=== PATIENT | female | born 1995 | race Two or more races ===

== ENCOUNTER 2017-02-17 13:56 | Inpatient (IN) | payer OTHER ==
[~2017-02-17] VITALS: Ht 157.5 cm; Wt 52.2 kg
--- NOTE | 2017-02-17 13:56 | NUR ---
SHARP SUDDEN RLQ ABDOMINAL PAIN, NAUSEA. NAD NOTED. PT AAO X4, AMB WITH STEADY GAIT. 10/10 PAIN. RR EVEN AND UNLABORED. MD AT BEDSIDE FOR EVAL.
[2017-02-17] MEDS ORDERED: HYDROMORPHONE 1 MG/1 ML DISP.SYRIN ONE ×5 (14:08→17:21)
[2017-02-17] MEDS ORDERED: ONDANSETRON HCL/PF 4 MG/2 ML VIAL ONE (14:08)
[2017-02-17 14:18] LABS: BASOPHILS # (AUTO) 0.1 /CMM (0.0-0.2); BASOPHILS % (AUTO) 0.5 % (0.0-2.0); EOSINOPHILS # (AUTO) 0.1 /CMM (0.0-0.7); EOSINOPHILS % (AUTO) 0.4 % (0.0-6.0); HEMATOCRIT 42 % (33-45); HEMOGLOBIN 13.9 g/dL (11.5-14.8); LYMPHOCYTES # (AUTO) 2.4 /CMM (0.8-4.8); LYMPHOCYTES % (AUTO) 16.9 % (20.0-44.0); MEAN CORPUSCULAR HEMOGLOBIN 30 PG (26.0-33.0); MEAN CORPUSCULAR HGB CONC 34 g/dl (31.0-36.0); MEAN CORPUSCULAR VOLUME 90 fL (82-100); MONOCYTES # (AUTO) 0.5 /CMM (0.1-1.30); MONOCYTES % (AUTO) 3.2 % (2.0-12.0); PLATELET COUNT (AUTO) 222 /CMM (150-450); RED BLOOD CELL COUNT(AUTO) 4.61 MIL/uL (4.0-5.2); WHITE BLOOD COUNT (AUTO) 14.1 K/uL (4.3-11.0)
[2017-02-17] MEDS ORDERED: IV NS 0.9% 1,000 ML BAG IV ONE (14:30)
[2017-02-17] MEDS ORDERED: ONDANSETRON HCL/PF 4 MG/2 ML VIAL IVP ONE (14:30)
[2017-02-17] MEDS ORDERED: HYDROMORPHONE INJ 2 MG/ML DISP.SYRIN IV ONE ×3 (14:30→15:00)
[2017-02-17] MEDS ORDERED: IV SET PRIMARY 1 EA INFUS.SET MC ONE (14:31)
[2017-02-17] MEDS ORDERED: IV NS 0.9% 1,000 ML ONE (14:31)
[2017-02-17 14:33] LABS: INR 1.06 (0.87-1.13)
[2017-02-17 14:34] LABS: ALBUMIN 4.5 g/dL (3.4-5.0); BILIRUBIN,DIRECT 0.1 mg/dL (0.0-0.2); BILIRUBIN,TOTAL 0.4 mg/dL (0.2-1.0); TOTAL PROTEIN, SERUM 8.2 g/dL (6.4-8.2)
[2017-02-17] MEDS ORDERED: KETOROLAC TROMETHAMINE INJ 30 MG/ML VIAL ONE (14:42)
[2017-02-17] MEDS ORDERED: KETOROLAC TROMETHAMINE INJ 30 MG/ML VIAL IV ONE (15:00)
[2017-02-17] MEDS ORDERED: IV NS 0.9% 250 ML IV ONE (15:14)
[2017-02-17] MEDS ORDERED: CT SWABBABLE VALVE TRANS SET 1 EA INFUS.SET MC ONE (15:15)
[2017-02-17] MEDS ORDERED: IOHEXOL-300 100 ML VIAL IV ONE (15:15)
--- NOTE | 2017-02-17 15:35 | NUR ---
PAGED ELECTRIC LOCOMOTIVE FIRER/FIREMAN PANEL NANCY LINDQUIST NP
--- NOTE | 2017-02-17 15:44 | NUR ---
DR FRENCH ON THE PHONE WITH DR RAMIREZ
[2017-02-17] MEDS ORDERED: HYDROMORPHONE 1 MG/1 ML DISP.SYRIN IV ONE ×2 (16:00→16:30)
--- NOTE | 2017-02-17 16:08 | NUR ---
PATIENT ASSIGNED [id number] DX ABDOMINAL PAIN
[2017-02-17] MEDS ORDERED: ONDANSETRON HCL/PF 4 MG/2 ML VIAL IVP PRN (16:30)
[2017-02-17] MEDS ORDERED: Z GUARD REMEDY 2 OZ OINT TP PRN (16:30)
[2017-02-17] MEDS ORDERED: ACETAMINOPHEN 325 MG TABLET PO PRN (16:30)
[2017-02-17] MEDS ORDERED: MAG HYDROX/AL HYDROX/SIMETH 30 ML UDC PO PRN (16:30)
[2017-02-17] MEDS ORDERED: MAGNESIUM HYDROXIDE 30 ML UDC PO PRN (16:30)
[2017-02-17] MEDS ORDERED: HYDROMORPHONE INJ 2 MG/ML DISP.SYRIN IV PRN (16:30)
[2017-02-17] MEDS ORDERED: LORAZEPAM INJ 2 MG/ML VIAL IVP ONE (17:00)
[2017-02-17] MEDS ORDERED: LORAZEPAM INJ 2 MG/ML VIAL ONE (17:22)
[2017-02-17] MEDS ORDERED: MEPERIDINE HCL/PF 100 MG/ML DISP.SYRIN IV PRN (17:30)
[2017-02-17] MEDS: MEPERIDINE HCL/PF 50 MG/ML DISP.SYRIN IM PRN (17:53)
[2017-02-17 17:55] VITALS: BP 115/61
--- NOTE | 2017-02-17 17:55 | NUR ---
CORRECTIONAL SUPERVISING COOK NOTES RECEIVED PATIENT IN STABLE CONDITION, COMPLAINTS OF 9/10 ABD PAIN. ADMINISTERED DEMEROL ORDERED. ROOMATE AT BEDSIDE. ALERT AND ORIENTED X4. CAN AMBULATE WITHOUT ASSISTANCE. LAST BM WAS 02/16/17 AND LAST URINATION WAS 1230 TODAY. HISTORY OF OVARIAN CYSTS. 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 ALL NEEDS MET. PICTURES TAKEN. WILL CONTINUE TO MONITOR.
--- NOTE | 2017-02-17 19:25 | NUR ---
MS RN OPENING NOTES: RECEIVED PT IN BED DOZING INTERMITTENTLY WITH FRIENDS AT BEDSIDE. PT IS A/OX4. IV IS ON L AC #18G AND IS PATENT AND INTACT. FLUIDS RUNNING AT NS 0.9% 75ML/HR. PT IS AMBULATORY WITH ASSIST. PT KEPT CLEAN, DRY, AND COMFORTABLE. CALL LIGHT WITHIN PT'S REACH. BED KEPT IN LOCKED, LOWEST POSITION, AND SIDE RAILS X2 UP. WILL CONTINUE TO MONITOR PT FOR PAIN AND THROUGHOUT SHIFT.
--- NOTE | 2017-02-17 19:42 | NUR ---
RN PM NOTES PATIENT ASLEEP IN BED AFTER PAIN MEDICATION, TOLERATED WELL. PATIENT IN STABLE CONDITION, EASILY AROUSABLE, PAIN 8/10. PICTURES TAKEN, ADMISSION COMPLETE. ENDORSED TO NEXT NURSE FOR CUBE MACHINE TENDER.
[2017-02-17 20:00] VITALS: BP 108/52
[2017-02-17] MEDS ORDERED: SECONDARY IV SET 1 EA INFUS.SET MC ONE (20:33)
[2017-02-17 21:02] VITALS: BP 108/52
[2017-02-17] MEDS: PIPERACILLIN /TAZOBACTAM 3.375 G in IV D5W 50 ML IV SCH (21:07)
[2017-02-18] MEDS: PIPERACILLIN /TAZOBACTAM 3.375 G in IV D5W 50 ML IV SCH ×4 (00:25→18:18)
[2017-02-18] MEDS: HYDROCODONE/APAP 10/325MG 1 EA TABLET PO PRN ×2 (03:19→13:34)
--- NOTE | 2017-02-18 03:19 | NUR ---
MS RN NOTES: PT COMPLAINED OF 8/10 R LOWER PAIN IN HER ABDOMEN RADIATING TO BACK. BP WAS 133/69 HR 72, 97.7 TEMP, AND PULSE OX 97%. HYDROCODONE 10/325MG PO WAS GIVEN. WILL CONTINUE TO MONITOR PT.
--- NOTE | 2017-02-18 06:59 | NUR ---
MS RN CLOSING NOTES: ALL NEEDS WERE ATTENDED. PT IN BED ASLEEP WITH FRIEND AT BEDSIDE. CALL LIGHT WITHIN PT'S REACH. BED KEPT IN LOCKED, LOWEST POSITION, AND SIDE RAILS X 2 UP. PT KEPT CLEAN, DRY, AND COMFORTABLE. IV IS ON L AC #18 AND IS PATENT AND INTACT. FLUIDS INFUSING NS 0.9% 1,000ML AT 75 MLS/HR. PT IS NPO EXCEPT MEDS. WILL CONTINUE TO MONITOR FOR PAIN THROUGHOUT SHIFT. WILL ENDORSE TO AM NURSE FOR CONTINUITY OF CARE.
[2017-02-18 07:39] LABS: BASOPHILS % (AUTO) 0.2 % (0.0-2.0); EOSINOPHILS % (AUTO) 0.2 % (0.0-6.0); HEMATOCRIT 35 % (33-45); HEMOGLOBIN 11.8 g/dL (11.5-14.8); LYMPHOCYTES # (AUTO) 1.4 /CMM (0.8-4.8); MEAN CORPUSCULAR HEMOGLOBIN 30 PG (26.0-33.0); MEAN CORPUSCULAR HGB CONC 34 g/dl (31.0-36.0); MEAN CORPUSCULAR VOLUME 89 fL (82-100); MONOCYTES # (AUTO) 0.6 /CMM (0.1-1.30); MONOCYTES % (AUTO) 6.8 % (2.0-12.0); NEUTROPHILS % (AUTO) 77.8 % (43.0-81.0); PLATELET COUNT (AUTO) 188 /CMM (150-450); RDW COEFFICIENT OF VARIATION 13.2 (11.5-15.0); RED BLOOD CELL COUNT(AUTO) 3.87 MIL/uL (4.0-5.2); WHITE BLOOD COUNT (AUTO) 9.1 K/uL (4.3-11.0)
[2017-02-18 08:00] VITALS: BP 95/50
--- NOTE | 2017-02-18 08:00 | NUR ---
m/s communications executive: notes in bed awake, resting comfortable. no c/o pain or any discomfort. remains npo. no bleeding reported. friends remains at bedside. instructed to call for assistance. will continue to monitor.
[2017-02-18 08:02] LABS: CALCIUM, SERUM 7.8 mg/dL (8.5-10.1); CREATININE 0.9 mg/dL (0.6-1.3); MAGNESIUM 1.7 mg/dL (1.8-2.4); PHOSPHORUS 3.6 mg/dL (2.5-4.9); POTASSIUM 3.1 mmol/L (3.5-5.1)
[2017-02-18 08:14] LABS: THYROID STIMULATING HORMONE 1.01 uIU/mL (0.358-3.74)
--- NOTE | 2017-02-18 08:30 | NUR ---
m/s bsa officer: notes mother again for updates and plan of care. mother wants to talk to md as stated.
--- NOTE | 2017-02-18 09:00 | NUR ---
m/s skein washer: notes mother called again for updates and plan of care. mother still wants to talk to md as stated.
--- NOTE | 2017-02-18 10:00 | NUR ---
m/s hot mill supervisor: notes mother called again for updates and plan of care. mother wants to talk to md as stated. still awaiting for pmd for eval. pt resting comfortable and in no distress. remains npo. continue on ivf, infusing well. will continue to monitor.
--- NOTE | 2017-02-18 11:00 | NUR ---
m/s shale miner blasting: notes mother called again and concern that md might bypass her and not being seen. all concerns answered. pt made aware. instructed to call for assistance. pt remains npo and continue on iv fluids. friends remains at bedside. will continue to monitor.
[2017-02-18] MEDS ORDERED: SECONDARY IV SET 1 EA INFUS.SET MC ONE (11:16)
[2017-02-18] MEDS: PANTOPRAZOLE 40 MG TABLET.DR PO SCH (11:20)
[2017-02-18] MEDS: POTASSIUM CHLORIDE 20 MEQ TAB.PRT.SR PO SCH ×2 (11:20→12:28)
[2017-02-18] MEDS: IV NS 0.9% 1,000 ML IV PRN (11:21)
[2017-02-18] MEDS: Magnesium 1GM/D5W 100ML PREMIX 100 ML IV SCH ×2 (11:31→13:01)
--- NOTE | 2017-02-18 12:45 | NUR ---
m/s operations specialist: md visit seen and examined by dr. aparicio with orders. pt for d'c planning home tomorrow morning per md. friends remains at bedside. md will call mother as stated and phone number given by family.
[2017-02-18 13:34] LABS: APPEARANCE,URINE CLEAR (CLEAR); BILIRUBIN,URINE NEGATIVE (NEGATIVE); BLOOD, URINE NEGATIVE Ery/uL (NEGATIVE); COLOR,URINE YELLOW (YELLOW); KETONES,URINE NEGATIVE (NEGATIVE); LEUKOCYTE ESTERASE ,URINE NEGATIVE (NEGATIVE); NITRITE, URINE NEGATIVE (NEGATIVE); PROTEIN,URINE NEGATIVE (NEGATIVE); UGLUCOSE NEGATIVE (NEGATIVE); UROBILINOGEN,URINE 0.2 EU/dL (0.2)
--- NOTE | 2017-02-18 13:34 | NUR ---
m/s professional bass fisherman: notes pt called and crying; c/o 9/10 lower abdomen pain, medicated with norco 10/325mg po as ordered. instructed to call for assistance.
[2017-02-18] MEDS: MEPERIDINE HCL/PF 50 MG/ML DISP.SYRIN IM PRN (14:05)
--- NOTE | 2017-02-18 14:05 | NUR ---
M/S POWER SWEEPER OPERATOR: NOTES PT C/O 9/10 LOWER AND MID BACK PAIN. MEDICATED WITH DEMEROL 100MG IM GIVEN TO LEFT DELTOID. FRIEND REMAINS AT BEDSIDE. MOTHER ON THE PHONE, VERY CONCERNED. SPOKE TO MOTHER AND CONCERNS ANSWERED. INSTRUCTED TO CALL FOR ASSISTANCE. WILL CONTINUE TO MONITOR.
--- NOTE | 2017-02-18 14:35 | NUR ---
m/s coal briquette machine operator: notes pt dozing off, appears comfortable. call light within reach. friend remains at bedside. will monitor.
--- NOTE | 2017-02-18 15:40 | NUR ---
m/s certified wellness program manager: notes pt remains asleep. dr. lynn (obgyn) notified and will come to see pt around 5pm as stated. friend made aware.
[2017-02-18 16:00] VITALS: BP 93/42
--- NOTE | 2017-02-18 16:10 | NUR ---
m/s admin asst: notes pt remains asleep, appears comfortable. friend remains at bedside. will continue to monitor.
[2017-02-18] MEDS ORDERED: LORAZEPAM INJ 2 MG/ML VIAL IV ONE (17:00)
--- NOTE | 2017-02-18 17:00 | NUR ---
m/s sleeve fixer: smoke jumper supervisor seen and examined by dr. lynn with order to give ativan 1mg ivp x1. also md spoke to pt and mother and discussed plan of surgery on friday afternoon as outpatient. dr. lynn will arrange everything as stated, pt can go home tomorrow morning per primary doctor. pt verbalized understanding. needs attended. instructed to call for assistance. will monitor.
[2017-02-18] MEDS ORDERED: PROMETHAZINE HCL 25 MG/ML AMPUL IM PRN (17:30)
--- NOTE | 2017-02-18 17:30 | NUR ---
m/s missile inspector: notes pt sounds asleep after ativan given by rn. call light within reach. will continue to monitor.
--- NOTE | 2017-02-18 18:20 | NUR ---
m/s bale breaker operator: notes pt awake and having dinner (outside food) with 2 friends at bedside. no c/o pain, n/v or any discomfort at this time. instructed to call for assistance. will continue to monitor.
--- NOTE | 2017-02-18 19:30 | NUR ---
MS RN OPENING NOTES: RECEIVED PT LAYING DOWN IN BED WITH FRIEND AT BEDSIDE. PT IS A/OX4. NO SIGNS OR SYMPTOMS OF DISTRESS NOTED AT THIS TIME. PT KEPT CLEAN, DRY, AND COMFORTABLE. CALL LIGHT WITHIN PT'S REACH. BED KEPT IN LOCKED, LOWEST POSITION, AND SIDE RAILS X2 UP. PT HAS IV ON LAC#18 AND IS PATENT AND INTACT. PT IS ON IV 0.9% FLUIDS AT 75ML/HR. WILL CONTINUE TO MONITOR PT.
[2017-02-18 20:00] VITALS: BP 90/52
[2017-02-19] MEDS ORDERED: SECONDARY IV SET 1 EA INFUS.SET MC ONE (00:27)
[2017-02-19] MEDS: PIPERACILLIN /TAZOBACTAM 3.375 G in IV D5W 50 ML IV SCH ×3 (00:35→11:09)
[2017-02-19] MEDS: IV NS 0.9% 1,000 ML IV PRN ×2 (04:24→18:49)
[2017-02-19] MEDS: HYDROCODONE/APAP 5/325MG 1 EACH TABLET PO PRN ×2 (05:57→13:46)
--- NOTE | 2017-02-19 05:57 | NUR ---
MS RN NOTES: PT COMPLAINED OF 4/10 RIGHT LOWER QUADRANT AB PAIN. PT WAS GIVEN NORCO 5/325MG PO. WILL CONTINUE TO MONITOR PT.
[2017-02-19 06:47] LABS: BASOPHILS % (AUTO) 0.5 % (0.0-2.0); EOSINOPHILS # (AUTO) 0.1 /CMM (0.0-0.7); EOSINOPHILS % (AUTO) 1.3 % (0.0-6.0); HEMATOCRIT 32 % (33-45); HEMOGLOBIN 10.9 g/dL (11.5-14.8); LYMPHOCYTES # (AUTO) 2.2 /CMM (0.8-4.8); LYMPHOCYTES % (AUTO) 33.6 % (20.0-44.0); MEAN CORPUSCULAR HEMOGLOBIN 31 PG (26.0-33.0); MEAN CORPUSCULAR HGB CONC 35 g/dl (31.0-36.0); MEAN CORPUSCULAR VOLUME 90 fL (82-100); MONOCYTES # (AUTO) 0.6 /CMM (0.1-1.30); MONOCYTES % (AUTO) 8.8 % (2.0-12.0); NEUTROPHILS # (AUTO) 3.6 /CMM (1.8-8.9); NEUTROPHILS % (AUTO) 55.8 % (43.0-81.0); PLATELET COUNT (AUTO) 160 /CMM (150-450); RDW COEFFICIENT OF VARIATION 13.6 (11.5-15.0); RED BLOOD CELL COUNT(AUTO) 3.53 MIL/uL (4.0-5.2); WHITE BLOOD COUNT (AUTO) 6.4 K/uL (4.3-11.0)
[2017-02-19 07:12] LABS: CALCIUM, SERUM 7.7 mg/dL (8.5-10.1); CREATININE 0.9 mg/dL (0.6-1.3); MAGNESIUM 1.8 mg/dL (1.8-2.4); POTASSIUM 3.9 mmol/L (3.5-5.1)
--- NOTE | 2017-02-19 07:20 | NUR ---
MS/RN OPENING NOTES: RECEIVED PATIENT AWAKE IN BED WITH FAMILY AT BEDSIDE. ALERT AND ORIENTED X4, NO ACUTE SIGNS OF DISTRESS NOTED. HEAD OF BED ELEVATED. IV ACCESS ON LAC#18 INTACT AND PATENT WITH IVF OF 0.9% AT 75ML/HR IN FUSING WELL, NO S/S OF INFILTRATION NOTED. CALL LIGHT WITHIN PT'S REACH. BED KEPT IN LOCKED AND IN LOWEST POSITION WITH SIDE RAILS UP X2. WILL CONTINUE TO MONITOR PATIENT ACCORDINGLY.
[2017-02-19 08:00] VITALS: BP 100/52
--- NOTE | 2017-02-19 08:02 | NUR ---
MS RN CLOSING NOTES: ALL NEEDS WERE ATTENDED. NO SIGNS OR SYMPTOMS OF DISTRESS NOTED AT THIS TIME. PT IN BED LAYING DOWN WITH FATHER AND FRIEND AT BEDSIDE. PT IS A/O X4. CALL LIGHT WITHIN PT'S REACH. BED KEPT IN LOCKED, LOWEST POSITION, AND SIDE RAILS X2 UP. IV ON L AC #18 AND IS RUNNING AT IV 0.9% NS 1,000ML AT 75 ML/HR. KEPT CLEAN, DRY, AND COMFORTABLE. ENDORSED TO AM NURSE FOR CONTINUITY OF CARE.
[2017-02-19] MEDS: PANTOPRAZOLE 40 MG TABLET.DR PO SCH (08:13)
--- NOTE | 2017-02-19 15:26 | NUR ---
RN NOTES PATIENT SEEN AND EVALUATED BY DR GARCIA. ORDERED ABT ROCEPHIN 1 GM IVPB Q 24HRS. BLOOD CULTURE AND URINE CULTURE NEGATIVE. MD ALSO AWARE OF BLOOD WORKS RESULTS AND ORDERED FOR BMP, CBC, MG AND PHOS TOMORROW MORNING. WILL CONTINUE TO MONITOR.
[2017-02-19] MEDS: MORPHINE SULFATE INJ 2 MG/ML DISP.SYRIN SQ PRN ×2 (15:58→19:57)
[2017-02-19] MEDS: CEFTRIAXONE 1 G in IV D5W 50 ML IV SCH (16:00)
[2017-02-19 16:43] VITALS: BP 107/63
--- NOTE | 2017-02-19 18:53 | NUR ---
MS/RN CLOSING NOTES: PATIENT IN BED AWAKE AND RESTING AT MODERATE HIGH BACKREST. ALERT AND ORIENTED X4, SAME VERBALLY RESPONSIVE WITH COMPLAINTS OF RIGHT UPPER QUADRANT ABDOMINAL PAIN THIS TOUR, PRN PAIN MEDS GIVEN ORDERED. PATIENT AMBULATES TO THE TOILET. IV ACCESS ON LAC#18 INTACT AND PATENT WITH IVF OF 0.9% @ 75 ML/HR INFUSING WELL, NO S/S OF INFILTRATION NOTED. CALL LIGHT WITHIN PT'S REACH. BED KEPT IN LOCKED AND IN LOWEST POSITION WITH SIDE RAILS UP X2. ALL NEEDS ATTENDED WELL AND DUE MEDS GIVEN ORDERED. WILL ENDORSED TO OFFICE SPECIALIST NURSE FOR CONTINUITY OF CARE.
--- NOTE | 2017-02-19 19:30 | NUR ---
MS RN NOTE RECEIVED PATIENT FROM DAY SHIFT, PATIENT IS ALERT AND ORIENTEDX4, DENIES RESPIRATORY DISTRESS AND COMPLAINS OF MILD PAIN ON ABDOMEN. IV ON LEFT AC IS PATENT AND INTACT, GETTING NS 75ML/HR. SRX2, BED IN LOW POSITION, CALL LIGHT WITHIN REACH, WILL CONTINUE TO MONITOR PATIENT.
[2017-02-19 20:00] VITALS: BP 97/48
--- NOTE | 2017-02-19 20:00 | NUR ---
MS RN NOTE PATIENT COMPLAINS OF ABDOMINAL PAIN 05/29, MORPHINE 2MG IVP GIVEN. WILL MONITOR FOR EFFECTIVENESS.
[2017-02-19 23:11] LABS: *NEISSERIA GONORRHOEAE NAA Negative (Negative); CHLAMYDIA TRACHOMATIS NAA Negative (Negative)
[2017-02-20] MEDS: MORPHINE SULFATE INJ 2 MG/ML DISP.SYRIN SQ PRN (00:05)
[2017-02-20] MEDS: HYDROCODONE/APAP 10/325MG 1 EA TABLET PO PRN ×2 (00:32→08:35)
--- NOTE | 2017-02-20 00:35 | NUR ---
MS RN NOTE PATIENT COMPLAINS OF SEVERE MENSTRUAL CRAMPS /, KEEPS MOANING AND CRYING, MORPHINE WAS NOT EFFECTIVE TO CONTROL HER PAIN. NORCO 10-325MG PO GIVEN. WILL MONITOR EFFECTIVENESS.
--- NOTE | 2017-02-20 06:56 | NUR ---
MS RN NOTE PATIENT IS SLEEPING AT THIS TIME, NO FACIAL GRIMACE AND NOS/S OF RESPIRATORY DISTRESS NOTED. IV ON LEFT AC IS PATENT AND INTACT, FLUID IS RUNNING. WILL ENDORSE TO DAY SHIFT FOR PATRICIA.
[2017-02-20] MEDS: IV NS 0.9% 1,000 ML IV PRN (07:03)
--- NOTE | 2017-02-20 07:08 | NUR ---
MS/RN OPENING NOTES: PATIENT RECEIVED AWAKE IN BED WITH FATHER AT BEDSIDE. ALERT AND ORIENTED X4. VERBALLY RESPONSIVE, NO C/O PAIN OR DISCOMFORTS AT THIS TIME. ON ROOM AIR, NO ACUTE SIGNS OF DISTRESS NOTED. HEAD OF BED ELEVATED. IV ACCESS ON LAC#18 INTACT AND PATENT WITH IVF OF NS AT 75ML/HR INFUSING WELL, NO S/S OF INFILTRATION NOTED. CALL LIGHT WITHIN PT'S REACH. BED LOCKED AND IN LOWEST POSITION WITH SIDE RAILS UP X2. WILL CONTINUE TO MONITOR PATIENT ACCORDINGLY.
[2017-02-20 07:15] LABS: BASOPHILS % (AUTO) 0.6 % (0.0-2.0); EOSINOPHILS # (AUTO) 0.1 /CMM (0.0-0.7); EOSINOPHILS % (AUTO) 1.5 % (0.0-6.0); HEMATOCRIT 33 % (33-45); HEMOGLOBIN 11.3 g/dL (11.5-14.8); LYMPHOCYTES # (AUTO) 2.2 /CMM (0.8-4.8); LYMPHOCYTES % (AUTO) 37.4 % (20.0-44.0); MEAN CORPUSCULAR HEMOGLOBIN 31 PG (26.0-33.0); MEAN CORPUSCULAR HGB CONC 35 g/dl (31.0-36.0); MEAN CORPUSCULAR VOLUME 90 fL (82-100); MONOCYTES # (AUTO) 0.6 /CMM (0.1-1.30); MONOCYTES % (AUTO) 10.3 % (2.0-12.0); NEUTROPHILS # (AUTO) 2.9 /CMM (1.8-8.9); NEUTROPHILS % (AUTO) 50.2 % (43.0-81.0); PLATELET COUNT (AUTO) 180 /CMM (150-450); RED BLOOD CELL COUNT(AUTO) 3.63 MIL/uL (4.0-5.2); WHITE BLOOD COUNT (AUTO) 5.8 K/uL (4.3-11.0)
[2017-02-20 07:38] LABS: CALCIUM, SERUM 8.1 mg/dL (8.5-10.1); CREATININE 0.9 mg/dL (0.6-1.3); PHOSPHORUS 4.4 mg/dL (2.5-4.9)
[2017-02-20 08:00] VITALS: BP 104/50
[2017-02-20] MEDS: PANTOPRAZOLE 40 MG TABLET.DR PO SCH (08:34)
[2017-02-20 16:00] VITALS: BP 100/50
[2017-02-20] MEDS: CEFTRIAXONE 1 G in IV D5W 50 ML IV SCH (16:00)
[2017-02-20] MEDS: HYDROCODONE/APAP 5/325MG 1 EACH TABLET PO PRN (16:06)
--- NOTE | 2017-02-20 16:19 | NUR ---
RN DISCHARGED NOTES PATIENT DISCHARGED HOME IN STABLE CONDITION. LEFT UNIT AMBULATORY ACCOMPANIED BY FATHER AT 1415H. SHE'S ALERT AND ORIENTED X4 IN NO ACUTE SIGNS OF DISTRESS DURING DISCHARGE. V/S TAKEN AND RECORDED. SKIN IS INTACT EXCEPT FOR MULTIPLE TATTOOS ON EXTREMITIES. BELONGINGS AND VALUABLES CHECKED, COUNTED AND SIGNED FORM. HEALTH TEACHINGS GIVEN TO PATIENT AND FATHER AND VERBALIZED UNDERSTANDING. MD AND CHARGE NURSE AWARE OF DISCHARGE.
== END 2017-02-20 16:20 | disposition home or self-care (01) | DRG 761 ==
LOC: ER 13:57 → MED 16:30
PROVIDERS: ADMIT Contractor; ATTEND Contractor
DX: N83.511 Torsion of right ovary and ovarian pedicle (principal); D72.829 Elevated white blood cell count, unspecified; N83.10 Corpus luteum cyst of ovary, unspecified side; E83.42 Hypomagnesemia; E87.6 Hypokalemia
CPT/HCPCS: 36415; 76856-TC; 80048-TC; 80061-TC; 80076-TC; 81000-TC; 83690-TC; 83735-TC; 84100-TC; 84443-TC; 84703-TC; 85025-TC; 85730-TC; 86803; 87040-TC; 87081-TC; 87086-TC; 87491; 87591; A4606; J0696; J1170; J1885; J2060; J2175; J2270; J2405; J2543; J3475; J7030; J7050; J7060; Q9967; Z7610